=== PATIENT | female | born 1940 | race Caucasian/White ===

== ENCOUNTER 2018-08-17 13:45 | Emergency (ER) | payer OTHER, MEDICAID ==
--- NOTE | 2018-08-17 13:51 | EDPHY ---
HPI/HX/ROS/PE/MDM Narrative: CHIEF COMPLAINT: Somnolent, decreased responsiveness HPI: The patient is a 78 y/o female with a history of COPD, chronic kidney disease, dementia, and chronic pain on opiates who arrives via EMS from [place] extremely somnolent with decreased responsiveness. Per staff on scene, patient has been "sick" since yesterday so they called EMS today for an IV start to rehydrate her. On their arrival, patient was nearly unresponsive and appeared until they checked breathing and a pulse, which were both present. Per staff, she is normally ambulatory at baseline and still goes outside to smoke regularly. For EMS, apart from one instance of yelling at them for a pillow she has not been answering questions or following commands. She is on O2 continuously. Her prehospital BGL was normal. Further history is not obtainable from the patient due to AMS. REVIEW OF SYSTEMS: Unobtainable from patient secondary to presentation. PMH: COPD, hypercholesterolemia, CKD, alcohol dependence-induced dementia, chronic pain - oxycodone SOCIAL HISTORY: Lives at [place]. Smoker. Retired. PHYSICAL EXAM: General:Patient is somnolent, thin and cachectic. ENT:Eyes are normal to inspection. ENT inspection normal. Neck: Normal inspection. Respiratory:No respiratory distress. Breath sounds normal bilaterally. Cardiovascular: Regular rate and rhythm. Strong peripheral pulses. Normal cap refill. Abdomen:The abdomen is nontender to palpation. There are no peritoneal signs. Back: Normal to inspection. No tenderness to palpation. Skin: Normal color. No rash. Warm and dry. Extremities: Normal appearance. Neuro: Oriented x0. Limited assessment. ED Course: This is a cachectic 78 y/o female with a history of dementia, COPD, chronic kidney disease, and chronic pain who presents from [place] extremely somnolent and altered. Per staff, she was "sick" yesterday and there's no cohesive story describing how her condition has changed since then. She is not able to participate in exam due to altered mentation/lethargy. Plan for IV, labs , EKG. 500mL IV NS ordered. The 12 lead EKG was interpreted by myself. See hard copy and/or "tracemaster" electronic copy for interpretation. Patient is becoming more alert and answering questions. She denies any complaints at this time. Nonfocal neuro exam. Labs are largely unremarkable. Creatinine is elevated at 1.9, slightly higher than baseline around 1.5. Plan for PO trial. Patient has improved significantly from initial presentation and is tolerating PO fluids. She is answering questions and following commands. I've found no emergent causes for her symptoms today. Recommend following up with her PCP in the next few days for reevaluation. Return precautions discussed. She is comfortable with this plan. - Data Points Laboratory Results: Laboratory Results 08/17/18 14:30 08/17/18 14:30 08/17/18 08/17/18 14:30 14:30 WBC 11.60 10^3/uL H 10^3/uL (3.80-9.50) RBC 4.05 10^6/uL L 10^6/uL (4.18-5.33) Hgb 12.3 g/dL L g/dL (12.6-16.3) Hct 38.9 % % (38.0-47.0) MCV 96.0 fL fL (81.5-99.8) MCH 30.4 pg pg (27.9-34.1) MCHC 31.6 g/dL L g/dL (32.4-36.7) RDW 13.2 % % (11.5-15.2) Plt Count 201 10^3/uL 10^3/uL (150-400) MPV 11.8 fL H fL (8.7-11.7) Neut % (Auto) 81.0 % H % (39.3-74.2) Lymph % (Auto) 9.4 % L % (15.0-45.0) [place] % (Auto) 8.6 % % (4.5-13.0) Eos % (Auto) 0.4 % L % (0.6-7.6) Baso % (Auto) 0.3 % % (0.3-1.7) Nucleat RBC Rel Count 0.0 % % (0.0-0.2) Absolute Neuts (auto) 9.38 10^3/uL H 10^3/uL (1.70-6.50) Absolute Lymphs (auto) 1.09 10^3/uL 10^3/uL (1.00-3.00) Absolute Monos (auto) 1.00 10^3/uL H 10^3/uL (0.30-0.80) Absolute Eos (auto) 0.05 10^3/uL 10^3/uL (0.03-0.40) Absolute Basos (auto) 0.04 10^3/uL 10^3/uL (0.02-0.10) Absolute Nucleated RBC 0.00 10^3/uL 10^3/uL (0-0.01) Immature Gran % 0.3 % % (0.0-1.1) Immature Gran # 0.04 10^3/uL 10^3/uL (0.00-0.10) Sodium 139 mEq/L mEq/L (135-145) Potassium 4.4 mEq/L mEq/L (3.5-5.2) Chloride 108 mEq/L mEq/L (97-110) Carbon Dioxide 25 mEq/l mEq/l (22-31) Anion Gap 6 mEq/L mEq/L (6-14) BUN 34 mg/dL H mg/dL (7-23) Creatinine 1.9 mg/dL H mg/dL (0.6-1.0) Estimated GFR 26 Glucose 83 mg/dL mg/dL (70-100) Calcium 9.8 mg/dL mg/dL (8.5-10.4) Total Bilirubin 0.7 mg/dL mg/dL (0.1-1.4) Conjugated Bilirubin 0.4 mg/dL mg/dL (0.0-0.5) Unconjugated Bilirubin 0.3 mg/dL mg/dL (0.0-1.1) AST 21 IU/L IU/L (14-46) ALT 27 IU/L IU/L (9-52) Alkaline Phosphatase 146 IU/L H IU/L (38-126) Total Protein 6.4 g/dL g/dL (6.3-8.2) Albumin 3.3 g/dL L g/dL (3.5-5.0) Medications Given: Discontinued Medications Sodium Chloride (Ns) 500 mls @ 0 mls/hr IV EDNOW ONE; Wide Open PRN Reason: Protocol Stop: 08/17/18 14:04 Last Admin: 08/17/18 15:14 Dose: 500 mls General Time Seen by Provider: 08/17/18 13:45 Initial Vital Signs: Initial Vital Signs Temperature (C) 36.7 C 08/17/18 14:03 Heart Rate 100 08/17/18 14:03 Respiratory Rate 20 08/17/18 14:03 Blood Pressure 143/85 H 08/17/18 14:03 Allergies/Adverse Reactions: No Known Allergies Allergy (Unverified 05/10/13 12:07) Home Medications: Medication Instructions Recorded Acetaminophen [Tylenol Tablet] 1,000 mg PO Q6 PRN 05/12/13 Bisacodyl [Dulcolax Rectal (OTC)] 10 mg MS DAILY PRN 05/12/13 LORazepam [Ativan 1 mg (RX)] 1 mg PO Q12 PRN 05/12/13 Loperamide HCl [Imodium 2 mg (OTC)] 2 mg PO Q6 PRN 05/12/13 Magnesium Hydroxide [Milk of 30 ml PO DAILY PRN 05/12/13 Magnesia (OTC)] Melatonin [Melatonin 3 MG (OTC)] 3 mg PO HS PRN 05/12/13 Oxycodone Ir [Oxycodone HCl Ir] 10 mg PO Q4 PRN 05/12/13 PARoxetine HCL [Paxil] 60 mg PO DAILY 05/12/13 Spironolactone [Aldactone 25 MG 25 mg PO DAILY 05/12/13 (RX)] Trolamine Salicylate [Aspercreme] 1 hardik TP QID PRN 05/12/13 Lactobacillus Acidophilus 1 each PO BIDMEAL 07/10/13 [Acidophilus] ONDANSETRON HCL [zofran 4mg] 4 mg PO Q4 07/10/13 Psyllium Seed [Metamucil] 3 misc PO DAILY 07/10/13 amLODIPine BESYLATE [Norvasc] 10 mg PO DAILY 07/10/13 Departure - Departure Disposition: Home, Routine, Self-Care Clinical Impression: Lethargy Condition: Good Instructions: Weakness (ED) Additional Instructions: Follow up with your primary care provider in the next 2-3 days for unimproved symptoms. Return for worsening of condition. Referrals: Reji Farley MD [Medical Doctor] - As per Instructions Report Scribed for: Guero Peace Report Scribed by: Crys Erickson Date of Report: 08/17/18 Time of Report: 13:53 Physician Review and Approval Statement: Portions of this note were transcribed by an ED scribe. I personally performed the history, physical exam, and medical decision making; and confirm the accuracy of the information in the transcribed note.
[2018-08-17] MEDS ORDERED: NS 500 ML IV ONE (14:03)
[2018-08-17 14:48] LABS: PLATELET COUNT 201 10^3/uL (150-400)
[2018-08-17 15:54] VITALS: BP 139/87
== END 2018-08-17 16:10 | disposition home or self-care (01) ==
LOC: EDUNIT#
DX: R53.83 Other fatigue (principal); R40.0 Somnolence; R46.4 Slowness and poor responsiveness